=== PATIENT | female | born 1970 | race Caucasian/White ===

== ENCOUNTER 2021-01-07 02:50 | Emergency (ER) | payer MEDICAID ==
[~2021-01-07] VITALS: Ht 170.2 cm; Wt 71.2 kg
[2021-01-07 02:52] VITALS: BP 115/80
[2021-01-07] MEDS ORDERED: cefTRIAXone SOD 1,000 MG VL IM ONE (05:30)
[2021-01-07] MEDS ORDERED: CLINDAMYCIN HCL 150 MG CAP PO ONE (05:30)
== END 2021-01-07 06:08 | disposition home or self-care (01) ==
LOC: ER 02:57
DX: S61.211D Laceration without foreign body of left index finger without damage to nail, subsequent encounter (principal); L08.9 Local infection of the skin and subcutaneous tissue, unspecified; F17.200 Nicotine dependence, unspecified, uncomplicated; W54.0XXD Bitten by dog, subsequent encounter
CPT/HCPCS: 73130; 96372; 99283; J0696

== ENCOUNTER 2021-01-09 23:29 | Emergency (ER) | payer MEDICAID ==
[~2021-01-09] VITALS: Ht 170.2 cm; Wt 72.6 kg
[2021-01-10 03:37] VITALS: BP 134/82
[2021-01-10] MEDS ORDERED: CLINDAMYCIN 900MG IV 50 ML IV ONE (04:45)
[2021-01-10] MEDS ORDERED: BACITRACIN TOP OINT 1 UD PKG TOP ONE (05:45)
== END 2021-01-10 06:02 | disposition home or self-care (01) ==
LOC: ER 23:34
DX: S61.251A Open bite of left index finger without damage to nail, initial encounter (principal); F17.210 Nicotine dependence, cigarettes, uncomplicated; W54.0XXA Bitten by dog, initial encounter; Y93.89 Activity, other specified; Y92.89 Other specified places as the place of occurrence of the external cause; Y99.8 Other external cause status
CPT/HCPCS: 73200; 96365; 99284; J3490

== ENCOUNTER 2021-07-21 15:43 | Emergency (ER) | payer MEDICAID ==
[~2021-07-21] VITALS: Ht 170.2 cm; Wt 72.6 kg
[2021-07-21] MEDS ORDERED: KETOROLAC TROMETH 60MG/2ML VIAL IM ONE (17:45)
[2021-07-21] MEDS ORDERED: cefTRIAXone SOD 1,000 MG VL IM ONE (17:45)
[2021-07-21 18:07] VITALS: BP 126/72
== END 2021-07-21 18:12 | disposition home or self-care (01) ==
LOC: ER 15:43
DX: H60.92 Unspecified otitis externa, left ear (principal); J02.9 Acute pharyngitis, unspecified; F41.9 Anxiety disorder, unspecified; J44.9 Chronic obstructive pulmonary disease, unspecified; F17.210 Nicotine dependence, cigarettes, uncomplicated; Z98.890 Other specified postprocedural states
CPT/HCPCS: 96372; 99284; J0696; J1885

== ENCOUNTER 2021-08-11 14:42 | Emergency (ER) | payer MEDICAID ==
[~2021-08-11] VITALS: Ht 170.2 cm; Wt 74.8 kg
[2021-08-11 14:51] VITALS: BP 109/68
== END 2021-08-11 18:17 | disposition left against medical advice (07) ==
LOC: ER 14:42
DX: H92.01 Otalgia, right ear (principal); Z53.21 Procedure and treatment not carried out due to patient leaving prior to being seen by health care provider

== ENCOUNTER 2023-05-09 03:33 | Emergency (ER) | payer MEDICAID, OTHER ==
[~2023-05-09] VITALS: Ht 172.7 cm; Wt 80.0 kg
[2023-05-09 05:06] LABS: Alanine Aminotransferase 18 U/L (7-40); Albumin 4.8 g/dL (3.2-4.8); Alkaline Phosphatase 64 U/L (46-116); Anion Gap 13.5 (5-15); Aspartate Aminotransferase 11 U/L (13-40); Calcium 9.8 mg/dL (8.7-10.4); Carbon Dioxide 17.5 mmol/L (20-30); Chloride 109 mmol/L (98-107); Glucose 92 mg/dL (74-106); Potassium 3.4 mmol/L (3.5-5.1); Sodium 140 mmol/L (136-145)
[2023-05-09 05:07] LABS: Bilirubin, Total 0.3 mg/dL (0.2-1.0); Total Protein 7.6 g/dL (5.7-8.2)
[2023-05-09 05:14] VITALS: BP 119/66; PULSE 106; RESP 22; TEMP 98.4; O2SAT 99
[2023-05-09 05:18] LABS: Basophils # (auto) 0 10 ^3/uL (0-0.2); Basophils % (auto) 0.7 % (0.0-2.0); Eosinophils # (auto) 0 10 ^3/uL (0-0.8); Eosinophils % (auto) 0.6 % (0.0-7.0); Hematocrit 40.9 % (36.0-46.0); Hemoglobin 14.1 g/dL (12.2-16.2); Mean Corpuscular Hgb Conc. 34.6 g/dL (32.0-36.0); Mean Corpuscular Volume 89.6 fL (80.0-100.0); Monocytes # (auto) 0.4 10 ^3/uL (0-1.3); Monocytes % (auto) 5.9 % (0.0-12.0); Neutrophils # (auto) 4.7 10 ^3/uL (1.6-8.6); Neutrophils % (auto) 64.8 % (37.0-80.0); Nucleated Red Blood Cells % 0.1 %; Red Blood Cells 4.56 10^6/uL (4.0-5.20); White Blood Cell 7.2 10^3/uL (4.4-10.8)
[2023-05-09 05:45] LABS: BUN/Creatinine Ratio 6.8 (10.0-20.0); Blood Urea Nitrogen < 5 mg/dL (9-23)
[2023-05-09] MEDS ORDERED: IBUPROFEN 800 MG TAB PO ONE (07:00)
[2023-05-09] MEDS ORDERED: SUMA50TA2 PO ×2 (07:05)
[2023-05-09] MEDS ORDERED: IBUP-1456 PO (07:24)
== END 2023-05-09 07:08 | disposition home or self-care (01) ==
LOC: EDBD 03:33 → ER 03:33
DX: G43.009 Migraine without aura, not intractable, without status migrainosus (principal); F41.9 Anxiety disorder, unspecified; J44.9 Chronic obstructive pulmonary disease, unspecified; F17.210 Nicotine dependence, cigarettes, uncomplicated; Z98.890 Other specified postprocedural states; Z79.899 Other long term (current) drug therapy
CPT/HCPCS: 36415; 80053; 84484; 85025; 93005